=== PATIENT | male | born 1955 | race Caucasian/White ===

== ENCOUNTER 2017-01-04 10:58 | Emergency (ER) | payer OTHER ==
--- NOTE | 2017-01-04 11:20 | EDPHY ---
H & P Time Seen by Provider: 01/04/17 11:19 HPI/ROS: Chief complaint. Upper respiratory infection, ear pain HPI. 61-year-old male with 1 week history of upper respiratory congestion. Now 1 day of left ear pain. No fever. No sore throat or cough. No chest pain or trouble breathing. No abdominal pain or vomiting. About 18 months ago patient had a piece of broken hearing aid imbedded deeply into his ear that needed to be removed and caused an ear infection. This feels similar. Otherwise no ear infections since he was a child ROS Constitutional. no fever/chills, no weakness Eyes. no problems with vision ENT. Nasal congestion and left ear pain Cardiovascular. no chest pain Respiratory. no shortness of breath, no cough Abdominal. no abdominal pain, no nausea/vomiting, no diarrhea . no problems urinating MS. no calf pain/swelling, no neck/back pain, no joint pain Skin. no rash Lymph. no swollen glands Neuro. no headache, no dizziness, no difficulty walking or with speech Past Medical/Surgical History: Past medical history hypertension, dyslipidemia, depression Social History: , nonsmoker, no alcohol Smoking Status: Never smoked Physical Exam: General Appearance: Alert pleasant well-developed male mild distress vital signs are stable Eyes: Pupils equal and round no pallor or injection. ENT, right tympanic membrane is normal. Left tympanic membrane stiff in erythematous. Pharynx without injection. Respiratory: There are no retractions, lungs are clear to auscultation. Cardiovascular: Regular rate and rhythm. Gastrointestinal: Abdomen is soft and nontender, no masses, bowel sounds normal. Neurological: Awake and alert, sensory and motor exams grossly normal. Skin: Warm and dry, no rashes. Musculoskeletal: Neck is supple nontender. Extremities symmetrical, full range of motion. Psychiatric: Patient is oriented X 3, there is no agitation. Constitutional: Initial Vital Signs Temperature (C) 36.4 C 01/04/17 11:08 Heart Rate 90 01/04/17 11:08 Respiratory Rate 16 01/04/17 11:08 Blood Pressure 124/78 H 01/04/17 11:08 O2 Sat (%) 93 01/04/17 11:08 O2 Delivery Mode Room Air Allergies/Adverse Reactions: No Known Allergies Allergy (Verified 01/04/17 11:04) Home Medications: Medication Instructions Recorded Amoxicillin 500 mg PO TID 7 Days 01/04/17 Escitalopram Oxalate 01/04/17 Losartan Potassium 01/04/17 Mometasone Furoate Nasal [Nasonex] 01/04/17 Terazosin HCl 01/04/17 Medical Decision Making ED Course/Re-evaluation: Patient remained stable. He and I discussed diagnosis, treatment plan including criteria for return importance of follow-up and further evaluation. He expresses understanding and agreement Differential Diagnosis: URI symptoms now bleeding to left otitis media. I considered pneumonia as well as acute pharyngitis. Departure - Departure Disposition: Home, Routine, Self-Care Clinical Impression: Left otitis media Qualifiers: Otitis media type: serous Chronicity: acute Recurrence: not specified as recurrent Qualified Code(s): H65.02 - Acute serous otitis media, left ear Condition: Good Instructions: Otitis Media (ED) Additional Instructions: Tylenol and ibuprofen as needed for discomfort. Amoxicillin as antibiotic. May use decongestant. Return for worsening symptoms. Recheck in 3-4 days if not improving Referrals: NONE *PRIMARY CARE P,. [Primary Care Provider] - As per Instructions Stand Alone Forms: Work Excuse Prescriptions: Amoxicillin 500 mg PO TID 7 Days
[2017-01-04 11:25] VITALS: BP 124/78; PULSE 90; RESP 16; TEMP 97.5; O2SAT 93
== END 2017-01-04 11:36 | disposition home or self-care (01) ==
LOC: CED 10:58
DX: H65.02 Acute serous otitis media, left ear (principal); I10 Essential (primary) hypertension